=== PATIENT | male | born 1990 | race Caucasian/White ===

== ENCOUNTER 2020-05-23 01:12 | Emergency (ER) | payer MEDICAID, SELFPAY ==
[2020-05-23 01:13] VITALS: BP 159/103; PULSE 110; RESP 14; TEMP 37.1; O2SAT 98; BMI 19.0
--- NOTE | 2020-05-23 02:00 | [facility].EDMCLR ---
ED Disposition Clinical Impression: Medical clearance for incarceration, Amphetamine abuse, Opiate abuse, episodic Disposition: Home, Self-Care Condition on Discharge: Good Instructions: DI for Drug Abuse and Drug Addiction Additional Instructions: see pcp for follow up Referrals: Provider,Referral, [Primary Care Provider] - - Critical Care Critical Care Time: No Attestation: On 05/23/20, the high probability of a clinically significant, sudden or life threatening deterioration of the following system(s) required my full and direct attention, intervention and personal management. The time I documented below is in addition to time spent performing reported procedures but includes the following listed in this critical care notation. Medical Decision Making - Medical Records Medical records reviewed: Yes: I reviewed the patient's medical records. - Jarrod Inquiry Pt receiving controlled substance: No Vital Signs: 05/23/20 01:13 Temperature 98.7 F Temperature Source Oral Pulse Rate [Right Brachial] 110 H Respiratory Rate 14 Blood Pressure [Right Arm] 159/103 H Blood Pressure Mean [Right Arm] 121 Blood Pressure Source [Right Arm] Automatic Cuff Blood Pressure Position [Right Arm] Sitting 02 Sat by Pulse Oximetry 98 Oxygen Delivery Method Room Air - Lab Data Lab results reviewed: Yes: I reviewed the patient's lab results. Lab Results 05/23/20 01:25: WBC 4.9, RBC 4.56 L, Hgb 14.9, Hct 41.7 L, MCV 91.5, MCH 32.8 H, MCHC 35.8 H, RDW 12.8, Plt Count 198, MPV 7.8, Neut % (Auto) 65.2, Lymph % (Auto) 25.1, [place] % (Auto) 1.3 L, Eos % (Auto) 7.7, Baso % (Auto) 0.7, Neut # (Auto) 3.2, Lymph # (Auto) 1.2, [place] # (Auto) 0.1, Eos # (Auto) 0.4, Baso # (Auto) 0.0 05/23/20 01:25: Sodium 136, Potassium 3.8, Chloride 100, Carbon Dioxide 30, Anion Gap 9.8, BUN 18, Creatinine 0.80, Estimated Creat Clear 119, Estimated GFR 112, Est GFR ( Amer) 136, Glucose 149 H, Calcium 8.9, Total Bilirubin 0.5, AST 80 H, ALT 125 H, Alkaline Phosphatase 106, Total Protein 7.3, Albumin 4.1, Globulin 3.2, Albumin/Globulin Ratio 1.3, Acetaminophen < 10 L 05/23/20 01:25: Urine Opiates Screen Positive H, Urine Methadone Screen Negative, Ur Barbituates Screen Negative, Ur Phencyclidine Scrn Negative, Ur Amphetamines Screen Dredge Engineer, U Benzodiazepines Scrn Negative, Urine Cocaine Screen Negative, U Marijuana (THC) Screen Negative 05/23/20 01:25: Plasma/Serum Alcohol < 10 Result diagrams: 05/23/20 01:25 05/23/20 01:25 Orders (Tests/Meds): ED MEDICATIONS Discontinued Medications Generic Name Dose Route Start Last Admin Trade Name Freq PRN Reason Stop Dose Admin Naloxone HCl 2 mg 05/23/20 02:10 05/23/20 01:30 Narcan 2mg/2ml Syringe IV 05/23/20 02:11 2 mg ONCE ONE Administration ORDERS Category Date Time Status Urinalysis and Microscopic Stat Lab 05/23/20 01:25 Received Medical Clearance HPI - General Chief complaint: Medical Clearance Stated complaint: MEDICAL CLEARANCE Time Seen by Provider: 05/23/20 01:20 Mode of Arrival: Ambulatory Source of Information: Patient, Law Enforcement, Medical Record Limitations: No Limitations Description of Symptoms (Recalled from ER Triage Doc. by RN): PATIENT BROUGHT IN FOR MEDICAL CLEARANCE. PATIENT ADMITS TO USING, METH, XANAX AND HERION TODAY. PATIENT REPORTS THE LAST TIME HE USED WAS RIGHT BEFORE THE TIME OF ARREST. - History of Present Illness HPI Narrative: pt has hx of drug use tonight but no fever or cough MD complaint: medical clearance requested Onset (ago): hour(s) Reason for Medical Clearance: intoxication Place: home Alleged Intoxication: Yes Traumatic Symptoms: denies traumatic injury Associated Symptoms: denies other symptoms Treatments Prior to Arrival: none Allergies/Adverse reactions: Allergies Allergy/AdvReac Type Severity Reaction Status Date / Time No Known Allergies Allergy Mild Uncoded 11/05/18 04:38 [facility] History - Hepatitis A Scre
[2020-05-23 02:02] LABS: Alanine Aminotransferase 125 U/L (12-78); Albumin Level 4.1 g/dl (3.5-5.0); Albumin/Globulin Ratio 1.3 (1.1-1.8); Alkaline Phosphatase 106 U/L (38-126); Anion Gap 9.8 mEq/L (5-15); Aspartate Amino Transferase 80 U/L (17-59); Basophils % 0.7 % (0.1-2.0); Bilirubin,Total 0.5 mg/dl (0.2-1.3); Blood Urea Nitrogen 18 mg/dl (9-20); Calcium 8.9 mg/dl (8.4-10.2); Carbon Dioxide 30 mmol/L (22.0-30.0); Chloride 100 mmol/L (98-107); Creatinine Clearance Estimated 119 mL/min (50-200); Eosinophils # 0.4 K/mm3 (0.0-0.4); Eosinophils % 7.7 % (0.1-12.0); Estimated Glomerular Filt Rate 112 ml/min (>60); GFR (African American) 136 ML/MIN (>60); Globulin 3.2 g/dL (1.3-3.2); Glucose 149 mg/dl (74-100); Hematocrit 41.7 % (42.0-52.0); Hemoglobin 14.9 g/dL (14.1-18.0); Lymphocytes # 1.2 K/mm3 (0.7-4.5); Lymphocytes % 25.1 % (10-50); Mean Corpuscular HGB Conc 35.8 g/dL (31.8-35.4); Mean Corpuscular Hemoglobin 32.8 pg (27.0-31.2); Mean Corpuscular Volume 91.5 fl (80-94); Mean Platelet Volume 7.8 fl (7.4-10.4); Monocytes # 0.1 K/mm3 (0.1-1.0); Monocytes % 1.3 % (1.7-9.3); Neutrophils # 3.2 K/mm3 (1.8-7.8); Neutrophils % 65.2 % (37.0-80.0); Platelet Count 198 K/mm3 (142-424); Potassium 3.8 mmoL/L (3.5-5.1); Red Blood Count 4.56 M/mm3 (4.60-6.20); Red Cell Distribution Width 12.8 % (11.5-17.5); Sodium 136 mmol/L (136-145); Total Protein,Serum 7.3 g/dl (6.3-8.2); White Blood Count 4.9 K/mm3 (4.8-10.8)
[2020-05-23 02:08] LABS: Acetaminophen < 10 ug/ml (10-30); Ethyl Alcohol < 10 mg/dl (0-10)
[2020-05-23 02:13] LABS: Barbiturates Screen,Urine Negative ng/ml (<200); Benzodiazepines Screen,Urine Negative ng/ml (<200)
[2020-05-23 02:14] LABS: Cannabinoid Screen,Urine Negative ng/ml (<50)
[2020-05-23 02:15] LABS: Cocaine Screen,Urine Negative ng/ml (<300); Methadone Screen,Urine Negative ng/ml (<300)
[2020-05-23 02:16] LABS: Opiate Screen,Urine Positive ng/ml (<300)
[2020-05-23 02:17] LABS: Phencyclidine Screen,Urine Negative ng/ml (<25)
[2020-05-23 02:30] LABS: Microscopic, Urine URINE MICROSCOPIC (MICROSCOPIC)
[2020-05-23 02:34] LABS: Appearance,Urine CLEAR (Clear); Bilirubin,Urine Negative (Negative); Blood, Urine Negative (Negative); Color,Urine YELLOW (Yellow); Glucose,Urine (UA) Negative (Negative); Ketones,Urine Negative (Negative); Leukocyte Esterase,Urine Negative (Negative); Nitrate,Urine Negative (Negative); Protein,Urine Negative (Negative); Specific Gravity, Urine >= 1.030 (1.005-1.030)
[2020-05-23 02:55] VITALS: BP 147/90; PULSE 88; RESP 14; TEMP 37.1; O2SAT 98
[2020-05-23 03:00] LABS: Bacteria,Urine 1+ /lpf; Mucus,Urine 1+ /lpf
--- NOTE | 2020-05-23 04:05 | PC.NURSE ---
pt repeatedly dozing off, unable to hold head up; difficulty maintaining airway. narcan 2 mg additionally given per md order.
[2020-05-27 15:52] LABS: Amphetamine Positive (.); Amphetamines Positive (.); Methamphetamine Positive (.)
[2020-05-27 16:29] LABS: Amphetamine (GC/MS) 6280 ng/mL (Cutoff=500); Methamphetamine (GC/MS) >4000 ng/mL (Cutoff=500)
== END 2020-05-23 04:15 | disposition home or self-care (01) ==
PROVIDERS: Emergency Provider Emergency Medicine
DX: F15.10 Other stimulant abuse, uncomplicated (principal); F11.10 Opioid abuse, uncomplicated
CPT/HCPCS: 80053; 80305; 80324; 80329; 81001; 85025; 96374; 99283; J2310

== ENCOUNTER 2022-08-18 21:12 | Emergency (ER) | payer MEDICAID, SELFPAY ==
--- NOTE | 2022-08-18 21:00 | ECG_ITS ---
APPROVED REPORT Exam: Resting ECG HR:133 bpm ECG Measurements Heart Rate 133 AXES QRSd 93 QRS 86 QT 302 T 0 QTc 380 Conclusion ATRIAL FLUTTER/TACHYCARDIA WITH RAPID VENTRICULAR RESPONSE NONSPECIFIC ST & T-WAVE ABNORMALITY ABNORMAL RHYTHM ECG UNCONFIRMED REPORT Electronically signed by : Caden Schroeder MD 08/19/2022 15:56:38
[2022-08-18 21:12] VITALS: BP 160/100; PULSE 126; RESP 19; TEMP 37; O2SAT 100; BMI 22.8
--- NOTE | 2022-08-18 22:00 | PC.NURSE ---
Law enforcement at [place]
[2022-08-19 00:37] VITALS: BP 154/95; PULSE 100; RESP 18; TEMP 36.7; O2SAT 99
== END 2022-08-19 00:53 | disposition left against medical advice (07) ==
LOC: ER 21:14
PROVIDERS: Emergency Provider Emergency Medicine
DX: Z53.21 Procedure and treatment not carried out due to patient leaving prior to being seen by health care provider (principal)
CPT/HCPCS: 93005